=== PATIENT | male | born 1970 | race Caucasian/White ===

== ENCOUNTER 2016-04-04 05:41 | Outpatient (CLI) | payer BC ==
[~2016-04-04] VITALS: Ht 185.4 cm; Wt 108.9 kg
[~2016-04-04 05:41] MED LIST: FEXO30TA17 PO; HYDR-91 PO; HYOS0.1216 PO; MNTL10T PO; NITR-33 PO; PHEN200T27 PO
== END 2016-04-04 13:46 ==
LOC: PREOP 05:41
PROVIDERS: ATTEND Surgery
DX: Z01.818 Encounter for other preprocedural examination (principal); K21.9 Gastro-esophageal reflux disease without esophagitis; Z80.0 Family history of malignant neoplasm of digestive organs

== ENCOUNTER 2016-04-06 08:12 | Day surgery (SDC) | payer BC ==
[~2016-04-06] VITALS: Ht 185.4 cm; Wt 108.9 kg
--- OUTSIDE RECORDS SUMMARY | 2016-04-06 08:18 | XMS REPORT | Continuity of Care Document ---
Author Author [facility] Organization [facility] Address Unknown Phone Unavailable Care Team Providers Care Certified Performance Technologist Name Role Phone SADE HART MD PCP Insurance Providers Payer Name Policy Number Subscriber Name Relationship [id number] Collins Morales Jr 19 Self / Same As Patient Advance Directives Directive Response Recorded Date/Time Advance Directives No 04/04/16 1:42pm Health Care Power of Extra Gang Supervisor No 04/04/16 1:42pm Organ Donor No 04/04/16 1:42pm Resuscitation Status Full Code 04/04/16 1:42pm Problems No problem information available. Medications No known medications. Social History Social History Problem Response Recorded Date/Time Alcohol Use Rarely Uses 04/04/2016 1:42pm Recreational Drug Use No 04/04/2016 1:42pm Recent Foreign Travel No 04/04/2016 1:44pm Recent Infectious Disease Exposure No 04/04/2016 1:44pm Smoking Status Never a Smoker 04/04/2016 1:42pm Recent Hopitalizations No 04/04/2016 1:42pm Query Response Start Date Stop Date Smoking Status Never a Smoker Hospital Discharge Instructions No hospital discharge instructions. Plan of Care Discharge Date 04/04/16 1:46pm Prescriptions See Medication Section Functional Status No functional status results. Allergies, Adverse Reactions, Alerts Allergen Type Severity Reaction Status Last Updated Levofloxacin Adverse Reaction Intermediate RED, ITCHY ARM DURING LEVAQUIN ADMINISTRATION Active 02/16/11 Immunizations No immunization records. Vital Signs Acute Vital Signs Vital Response Date/Time Height (Feet) 6 feet 04/04/2016 1:42pm Height (Inches) 1.00 inches 04/04/2016 1:42pm Height (Calculated Centimeters) 185.984981 cm 04/04/2016 1:42pm Weight (Pounds) 240 pounds 04/04/2016 1:42pm Weight (Ounces) 0.0 oz 04/04/2016 1:42pm Weight (Calculated Grams) 591167.17 gm 04/04/2016 1:42pm Weight (Calculated Kilograms) 108.488898 kilograms 04/04/2016 1:42pm Calculated BMI 31.7 04/04/2016 1:42pm Results No known relevant diagnostic tests, laboratory data and/or discharge summary. Procedures No known history of procedures. Encounters Encounter Location Arrival/Admit Date Discharge/Depart Date Attending Provider Departed Clinic [facility] 04/04/16 5:41am 04/04/16 1: 46pm DARRELL WHITE MD
--- OUTSIDE RECORDS SUMMARY | 2016-04-06 08:18 | XMS REPORT | Continuity of Care Document ---
Author Author [facility] Organization [facility] Address Unknown Phone Unavailable Care Team Providers Care Patient Service Specialist Name Role Phone SADE HART MD PCP Insurance Providers Payer Name Policy Number Subscriber Name Relationship [id number] Collins Morales Jr 19 Self / Same As Patient Advance Directives Directive Response Recorded Date/Time Advance Directives No 04/04/16 1:42pm Health Care Power of Bowling Ball Molder No 04/04/16 1:42pm Organ Donor No 04/04/16 [...] 1.00 inches 04/04/2016 1:42pm Height (Calculated Centimeters) 185.865976 cm 04/04/2016 1:42pm Weight (Pounds) 240 pounds 04/04/2016 1:42pm Weight (Ounces) 0.0 oz 04/04/2016 1:42pm Weight (Calculated Grams) 491140.17 gm 04/04/2016 1:42pm Weight (Calculated Kilograms) 108.605261 kilograms 04/04/2016 1:42pm Calculated BMI 31.7 04/04/2016 1:42pm Results No known relevant diagnostic tests, laboratory data and/or discharge summary. Procedures No known history of procedures. Encounters Encounter Location Arrival/Admit Date Discharge/Depart Date Attending Provider Departed Clinic [facility] 04/04/16 5:41am 04/04/16 1: 46pm DARRELL WHITE MD
[2016-04-06] MEDS ORDERED: HURRICAINE EXT TUBE (BENZOCAINE) XX PRN (08:30)
[2016-04-06] MEDS ORDERED: NALOXONE 0.4 MG/ML 1 ML (NARCAN) VIAL IVP PRN (08:30)
[2016-04-06] MEDS ORDERED: NS IV 500 ML 500 ML IV PRN (08:30)
[2016-04-06] MEDS ORDERED: FLUMAZENIL (ROMAZICON) 0.1 MG/ML 5 ML VIAL INJ PRN (08:30)
[2016-04-06 08:41] VITALS: BP 161/88
[2016-04-06] MEDS ORDERED: MIDAZOLAM 2 MG/2 ML (VERSED) VIAL ONE ×4 (10:01→10:02)
[2016-04-06] MEDS ORDERED: fentaNYL INJECTION 100 MCG/2 ML AMP ONE ×2 (10:02)
[2016-04-06] MEDS ORDERED: HURRICAINE EXT TUBE (BENZOCAINE) ONE (10:02)
[2016-04-06] MEDS: fentaNYL INJECTION 100 MCG/2 ML AMP IVP PRN ×4 (10:08→10:27)
[2016-04-06] MEDS: MIDAZOLAM 2 MG/2 ML (VERSED) VIAL IVP PRN ×3 (10:09→10:22)
--- NOTE | 2016-04-06 10:39 | Pre-Op Note & Conscious Sedat ---
Pre-Operative Progress Note H&P Reviewed The H&P was reviewed, patient examined and no changes noted. Date H&P Reviewed: Apr 06, 2016 Time H&P Reviewed: 09:51 Pre-Op Diagnosis: GERD. Family history of colon cancer. Screening Conscious Sedation Pre-Proced ASA Class: 2 Airway Mallampati Classification: (pauma appropriate class) I. II. III, IV Lungs Heart ASA score ASA 1: a normal healthy patient ASA 2: a patient with a mild systemic disease (mid diabetes, controlled hypertension, obesity ASA 3: a patient with a severe systemic disease that limits activity (angina , COPD, prior Myocardial infarction) ASA 4: a patient with an incapacitating disease that is a constant threat to life (CHF, renal failure) ASA 5: a moribund patient not expected to survive 24 hrs. (ruptured aneurysm) ASA 6: a declared brain patient whose organs are being harvested. For emergent operations, add the letter E after the classification Grade 2 Sedation Plan: Discussed options with patient/fam Note The patient is an appropriate candidate to undergo the planned procedure, sedation, and anesthesia. The patient immediately re-assessed prior to indication. DARRELL WHITE MD Apr 06, 2016 10:39 am
[2016-04-06] MEDS ORDERED: PANT40TA2 PO (10:40)
--- NOTE | 2016-04-06 10:40 | Progress Note-Post Operative ---
Post-Operative Progess Note Pre-Operative Diagnosis GERD. Family history of colon cancer. Screening Post-Operative Diagnosis EGD: Grade 3 esophagitis with ulceration at the distal end. Antral erosion. Colonoscopy: 4 mm proximal sigmoid colon polyp Post-Op Procedure Note Date of Procedure: Apr 06, 2016 Name of Procedure: EGD with antral biopsy Colonoscopy to cecum Snare polypectomy Anesthesia Type sedation Specimen(s) collected antral mucosa and sigmoid polyp DARRELL WHITE MD Apr 06, 2016 10:40 am
--- NOTE | 2016-04-06 10:41 | Discharge Inst-Simple/Standard ---
Discharge Inst-Standard Discharge Medications New, Converted or Re-Newed RX: RX on Chart Patient Instructions/Follow Up Plan of Care/Instructions/FU: repeat colonoscopy in 2 years Activity as Tolerated: Yes Discharge Diet: No Restrictions DARRELL WHITE MD Apr 06, 2016 10:41 am
[2016-04-06 10:55] VITALS: BP 164/104
[2016-04-06 11:20] VITALS: BP 134/87
[2016-04-06 15:09] VITALS: BP 134/87
--- NOTE | 2016-04-07 12:07 | PROCEDURE REPORT ---
PROCEDURE PHYSICIAN: DARRELL WHITE DATE OF PROCEDURE: 04/06/2016 PROCEDURE: 1. Upper GI endoscopy with antral biopsy. 2. Colonoscopy/snare polypectomy. SURGEON: Nicko. INDICATION FOR THE PROCEDURE: This gentleman came in for an endoscopic assessment of symptoms of reflux disease and for screening colonoscopy. He reported a positive family history of colon cancer in his father and paternal grandfather. Informed consent was obtained after reviewing the procedures in detail. DESCRIPTION OF PROCEDURE: 1. UPPER GI ENDOSCOPY/ANTRAL BIOPSY: He was placed in left lateral decubitus position and his vital signs were monitored. Conscious sedation was achieved using Versed and fentanyl. The flexible gastroscope was introduced down the esophagus, past the stomach, into the proximal duodenum. FINDINGS: ESOPHAGUS: Grade 3 esophagitis with ulceration in a linear fashion, involving the distal end of the esophagus. Photodocumentation was obtained. STOMACH: One small erosion at the antrum. Biopsy for H. pylori was obtained. DUODENUM: Normal. He tolerated the procedure well and was taken to the nursing area in a stable condition. IMPRESSION: 1. Symptoms of reflux disease. 2. Grade 3 esophagitis and antral erosion. 3. Helicobacter status pending PROCEDURE: 2. COLONOSCOPY/POLYPECTOMY: Digital rectal examination was unremarkable. The colonoscope was then introduced into the rectum and advanced all the way up to the cecum. The quality of bowel preparation was excellent the scope was then withdrawn slowly and the mucosa examined in a systematic fashion. FINDINGS: A 4 mm polyp at the proximal sigmoid colon that was snared and retrieved. He tolerated the procedure well and was taken back to the nursing area in a stable condition. IMPRESSION: 1. Screening colonoscopy. 2. Positive family history. 3. Sigmoid polyp excised. 4. Recommend repeating in 2 years. Job ID: [id number] Dictated Date: 04/06/2016 10:38:39 Yeast Stacker Date: 04/07/2016 12:01:28 / sergio LORA
== END 2016-04-06 11:50 | disposition home or self-care (01) ==
LOC: ENDO 08:12
PROVIDERS: ATTEND Surgery
DX: Z12.11 Encounter for screening for malignant neoplasm of colon (principal); D12.5 Benign neoplasm of sigmoid colon; K21.9 Gastro-esophageal reflux disease without esophagitis; K22.10 Ulcer of esophagus without bleeding; K25.9 Gastric ulcer, unspecified as acute or chronic, without hemorrhage or perforation; K29.50 Unspecified chronic gastritis without bleeding; Z80.0 Family history of malignant neoplasm of digestive organs
CPT/HCPCS: 88305; 88342

== ENCOUNTER → 2019-11-26 | Outpatient (CLI) | payer BC ==
[~2019-11-26] MED LIST changes: +PANT40TA2 PO
== END | disposition home or self-care (01) ==
LOC: PREOP 11:48
PROVIDERS: ATTEND Surgery
DX: Z01.818 Encounter for other preprocedural examination (principal)

== ENCOUNTER 2020-01-23 11:00 | Outpatient (RCR) | payer BC ==
[~2020-01-23] VITALS: Ht 188 cm; Wt 127.3 kg
[2020-01-23] MEDS ORDERED: MONT10TA97 PO (11:19)
[2020-01-23] MEDS ORDERED: PANT40TA52 PO (11:19)
[2020-01-23] MEDS ORDERED: LORA10TA76 PO (11:19)
== END 2020-01-23 12:20 | disposition home or self-care (01) ==
LOC: PREOP 11:00
PROVIDERS: ATTEND Surgery
DX: Z01.818 Encounter for other preprocedural examination (principal); K40.90 Unilateral inguinal hernia, without obstruction or gangrene, not specified as recurrent

== ENCOUNTER 2020-01-29 08:23 | Day surgery (SDC) | payer BC, OTHER ==
--- NOTE | 2020-01-26 10:01 | HISTORY AND PHYSICAL ---
DATE OF SERVICE: DATE OF ADMISSION: 01/29/2020. PROCEDURE DATE: 01/29/2020. PRIMARY CARE PHYSICIAN: Dr. Kimberli Cho. HISTORY OF PRESENT ILLNESS: The patient is a 49-year-old male, who was seen for left testicular swelling for years and had noticed a slight increase in swelling. He reports that this had been on an intermittent basis. He reports that this was also worse upon physical exertion. Upon examination, he was found to have a left inguinal hernia, which was reducible. He also reports he was unsure if he had a screening colonoscopy. He reports that his last colonoscopy was three years ago and a polyp was identified; however, was unsure if this was a benign polyp. It was explained to the patient that if this was a tubular adenoma or hyperplastic polyp that he can wait for five years; however, if there was a villous component, then he will need a colonoscopy in one to three years. He was, otherwise, doing well. He did not report any complaints. He did report a family history of colon cancer; however, with his father as well as maternal grandfather having the disease. He reports that he is tolerating regular diet and activities and having normal bowel movements. PAST MEDICAL HISTORY: Nephrolithiasis. PAST SURGICAL HISTORY: Rhinoplasty. ALLERGIES: No known drug allergies. MEDICATIONS: None. SOCIAL HISTORY: Negative for tobacco smoke. Negative for alcohol. FAMILY HISTORY: Father and paternal grandfather, colon cancer. REVIEW OF SYSTEMS: This is a well-nourished male in no acute distress. He is not experiencing any shortness of breath or difficulty breathing. No chest pain, palpitations or diaphoresis. No nausea, vomiting or abdominal pain. No diarrhea or constipation. No red blood per rectum. No dark tarry stools. No fever or chills. No recent inadvertent weight loss. He does report increased swelling in the left inguinal region. All other review of systems is negative. PHYSICAL EXAMINATION: VITAL SIGNS: Blood pressure is 124/84. Current weight 273.2, height 6 feet 1 inches. CHEST: Clear. Good breath sounds bilaterally. HEART: Regular and no murmurs. EXTREMITIES: No lower extremity edema. Negative Homans sign. HEENT: No scleral icterus. NECK: No cervical lymphadenopathy. ABDOMEN: Soft and nondistended. There is a left indirect inguinal hernia, which is reducible; however, is mildly tender to palpation. There is no right inguinal hernia component identified. SKIN: Warm, dry and pink. NEUROLOGIC: He is awake, alert and oriented x3. ASSESSMENT AND PLAN: A 49-year-old male with a symptomatic left reducible inguinal hernia, who also has a first-degree family history of colon cancer as well as a history of polyps. At this time, he would like to proceed with a laparoscopic left inguinal hernia repair as well as a screening colonoscopy. The natural history of hernias was explained to the patient and at this time, we will recommend he apply support at all times, especially when doing lifting and exertion. The patient verbalized understanding of instructions and agrees to proceed as planned. Job ID: [id number] DocumentID: [id number] Dictated Date: 01/26/2020 09:20:56 Flying Ii Instructor Date: 01/26/2020 10:00:48 Dictated By: KATHY THOMAS APRN
[2020-01-29] VITALS (10 sets, daily range): BP systolic 123–144; BP diastolic 82–98
[~2020-01-29] VITALS: Ht 188 cm; Wt 127.3 kg
[~2020-01-29 08:23] MED LIST changes: +LORA10TA76 PO; +MONT10TA97 PO; +PANT40TA52 PO
--- NOTE | 2020-01-29 08:50 | Progress Note-Pre Operative ---
Pre-Operative Progress Note H&P Reviewed The H&P was reviewed, patient examined and no changes noted. Date Seen by Provider: Jan 29, 2020 Time Seen by Provider: 08:45 Date H&P Reviewed: Jan 29, 2020 Time H&P Reviewed: 08:40 Pre-Operative Diagnosis: Left inguinal hernia, Screening colonoscopy, Fam hx colon CA, Hx of polyps KATHY THOMAS APRN Jan 29, 2020 08:50
[2020-01-29] MEDS ORDERED: ceFAZolin 2 GM IV Premixed 50 ML ONE (08:51)
[2020-01-29] MEDS ORDERED: HYDR-4227 PO (08:53)
--- NOTE | 2020-01-29 08:53 | Discharge Inst-Surgical ---
D/C Lap Instructions-KIDO Reconcile Patient Problems Problems Reviewed?: Yes New, Converted, or Re-Newed RX: RX on Chart Follow Up Appt in 2 weeks Activity as tolerated No driving for 24 hours No driving while on pain medications Incentive Spirometry use every 2 hours while awake Regular Diet Symptoms to Report: Fever over 101 degree F, Nausea/Vomiting Infection Signs and Symptoms to report: Increased redness, Foul odor of wound, Increased drainage Bathing instructions: May shower Operative Area Clean/Dry; Keep incision clean/dry If any problems/questions: Contact your physician or go to Emergency Room KATHY THOMAS APRN Jan 29, 2020 08:53
[2020-01-29] MEDS: LACTATED RINGERS 1,000 ML IV PRN ×2 (08:55→11:09)
[2020-01-29 08:56] LABS: BASOPHILS % (AUTO) 1 % (0-10); EOSINOPHILS # (AUTO) 0.2 10^3/uL (0.0-0.3); EOSINOPHILS % (AUTO) 3 % (0-10); HEMATOCRIT 48 % (40-54); HEMOGLOBIN 15.5 g/dL (13.3-17.7); LYMPHOCYTES # (AUTO) 2.2 10^3/uL (1.0-4.0); LYMPHOCYTES % (AUTO) 32 % (12-44); MEAN CORPUSCULAR HEMOGLOBIN 27 pg (25-34); MEAN CORPUSCULAR HGB CONC 32 g/dL (32-36); MEAN CORPUSCULAR VOLUME 84 fL (80-99); MEAN PLATELET VOLUME 8.9 fL (9.0-12.2); MONOCYTES # (AUTO) 0.5 10^3/uL (0.0-1.0); MONOCYTES % (AUTO) 8 % (0-12); NEUTROPHILS # (AUTO) 3.9 10^3/uL (1.8-7.8); NEUTROPHILS % (AUTO) 56 % (42-75); PLATELET COUNT 297 10^3/uL (130-400); WHITE BLOOD COUNT 6.9 10^3/uL (4.3-11.0)
[2020-01-29] MEDS ORDERED: FAMOTIDINE 20MG/2ML IV (PEPCID) ONE (08:58)
[2020-01-29] MEDS ORDERED: ACETAMINOPHEN 325 MG TABLET PO PRN (09:00)
[2020-01-29] MEDS ORDERED: morphine INJ 10 MG/ML 1ML (SYR OR VIAL) IVP PRN (09:00)
[2020-01-29] MEDS ORDERED: ONDANSETRON 4 MG/2 ML (SDV) Z0FRAN IVP PRN ×2 (09:00→12:00)
[2020-01-29] MEDS ORDERED: HYDROcodone/APAP 5 MG/325 MG (LORTAB) TAB PO ONE (09:00)
[2020-01-29] MEDS ORDERED: ceFAZolin 2 GM IV Premixed 50 ML IV ONE (09:15)
[2020-01-29] MEDS ORDERED: FAMOTIDINE 20MG/2ML IV (PEPCID) IV ONE (09:15)
[2020-01-29] MEDS ORDERED: LIDOCAINE/EPI 1%-1:200,000 (XYLOCAINE) 30 ML VIAL ONE (09:26)
[2020-01-29] MEDS ORDERED: ROCURONIUM 10 MG/ML 5 ML SYRINGE IV ONE (09:43)
[2020-01-29] MEDS ORDERED: SUCCINYLCHOLINE INJ 100 MG/5 ML SYR/VIAL ONE (09:43)
[2020-01-29] MEDS ORDERED: proPOfol 200 MG/20 ML (DIPRIVAN) VIAL IV ONE (09:43)
[2020-01-29] MEDS ORDERED: LIDOCAINE PF 2% 5 ML (XYLOCAINE) VIAL ONE (09:43)
[2020-01-29] MEDS ORDERED: ONDANSETRON 4 MG/2 ML (SDV) Z0FRAN ONE (09:43)
[2020-01-29] MEDS ORDERED: MIDAZOLAM 2 MG/2 ML (VERSED) VIAL ONE (09:44)
[2020-01-29] MEDS ORDERED: fentaNYL INJECTION 100 MCG/2 ML AMP ONE ×2 (09:44→11:17)
[2020-01-29] MEDS ORDERED: SEVOFLURANE (ULTANE) 15 ML INHAL SOLN ONE ×5 (09:46→11:53)
[2020-01-29] MEDS ORDERED: NEOSTIGMINE 3 MG/3 ML VIAL ONE (09:48)
[2020-01-29] MEDS ORDERED: GLYCOPYRROLATE 0.2 MG/ML (ROBINUL) 2 ML VIAL ONE (09:48)
[2020-01-29] MEDS ORDERED: KETOROLAC 30 MG/ML VIAL ONE (10:21)
--- NOTE | 2020-01-29 11:45 | Progress Note-Post Operative ---
Post-Operative Progess Note Surgeon (s)/Automatic Fabric Cutter (s) Surgeon Dr. Arthur Arroyo M.D. Automatic Fabric Cutter: Abhay Thomas PIGS FEET CLEANER Pre-Operative Diagnosis Left inguinal hernia, Screening colonoscopy, Fam hx colon CA, Hx of polyps Post-Operative Diagnosis Bilateral indirect inguinal hernias, reflux esophagitis stage II, small hiatal hernia, mild to moderate gastritis, chronic stage II external and internal hemorrhoids, mild sigmoid diverticulosis Procedure & Operative Findings Date of Procedure 01/29/20 Procedure Performed/Findings Laparoscopic bilateral inguinal hernia repair with mesh, EGD with biopsy, colonoscopy Anesthesia Type GET Estimated Blood Loss Estimated blood loss (mL): Minimal Specimens/Packing Specimens Removed 1) Antrum 2)GE Junction ABHAY THOMAS PIGS FEET CLEANER Jan 29, 2020 11:45
[2020-01-29] MEDS ORDERED: MEPERIDINE (DEMEROL) INJ 50 MG/ML ONE (11:58)
[2020-01-29] MEDS ORDERED: HYDROmorphone 2 MG/ML VIAL (DILAUDID) IV ONE (12:00)
[2020-01-29] MEDS ORDERED: PROMETHAZINE INJ 25 MG/ML (PHENERGAN) AMP IVP ONE (12:00)
[2020-01-29] MEDS ORDERED: MEPERIDINE (DEMEROL) INJ 50 MG/ML IVP ONE (12:00)
[2020-01-29] MEDS ORDERED: morphine INJ 10 MG/ML 1ML (SYR OR VIAL) IVP ONE (12:00)
--- NOTE | 2020-01-29 15:02 | Anesthesia-General Post-Op ---
General Patient Condition Mental Status/LOC: Same as Preop Cardiovascular: Satisfactory Nausea/Vomiting: Absent Respiratory: Satisfactory Pain: Controlled Complications: Absent Post Op Complications Complications None Follow Up Care/Instructions Patient Instructions None needed. Anesthesia/Patient Condition Patient Condition Patient is doing well, no complaints, stable vital signs, no apparent adverse anesthesia problems. No complications reported per nursing. LAKESHIA PARKER CRNA Jan 29, 2020 15:02
--- NOTE | 2020-01-29 19:21 | OPERATIVE REPORT ---
DATE OF SERVICE: 01/29/2020 ATTENDING PRIMARY CARE PHYSICIAN: Dr. Kimberli Cho. PREOPERATIVE DIAGNOSES: Symptomatic reducible left inguinal hernia, gastroesophageal reflux disease, screening colonoscopy with family history of colon cancer. POSTOPERATIVE DIAGNOSES: Bilateral indirect inguinal hernias, reflux esophagitis stage II, small hiatal hernia approximately 1.5 cm in size, mild to moderate gastritis, chronic stage II external and internal hemorrhoids, mild sigmoid diverticulosis. PROCEDURE: Bilateral laparoscopic inguinal hernia repair with mesh, EGD with biopsy, colonoscopy. SURGEON: Wayne Arroyo MD. PROMOTION PRODUCER: Abhay Montero APRN. ANESTHESIA: General endotracheal. ESTIMATED BLOOD LOSS: Minimal. FINDINGS: Same as postoperative diagnoses. DISPOSITION: The patient tolerated the procedure well. INDICATIONS: The patient is a 49-year-old male who was seen for pain and a palpable bulge in the left inguinal region that would at times be palpable near his testicle. He states that this was first detected years ago; however, had become more painful and more apparent as well. He was found to have a reducible left inguinal hernia. He also does have a longstanding history of gastroesophageal reflux disease and states that he has epigastric burning sensation, which has worsened over time as well. He is also in need of a screening colonoscopy. He does have a first-degree relative with history of colon cancer with his father having the disease. DESCRIPTION OF PROCEDURE: The patient was brought to the operating room and laid supine on the table. After adequate IV pain and sedative medications and general endotracheal intubation, the abdomen was prepped and draped in standard surgical fashion. A 0.5% Marcaine with epinephrine was used to anesthetize overlying skin in the infraumbilical rim and a transverse skin incision was made using a 15 blade. A sharp towel clamp was used to retract the abdominal wall anteriorly and a Veress needle inserted with a low opening pressure of 0 mmHg and the abdomen was insufflated to 15 mmHg pressure. The Veress needle removed and a 10 mm XL trocar placed followed by a 10 mm 45-degree angle laparoscope visualizing the peritoneal cavity. A 4-quadrant abdominal exploration was performed. There were bilateral indirect inguinal hernias identified with nothing within the hernia sac. What was visualized the omentum, small bowel and colon appeared normal. Under direct visualization, we then proceeded to place bilateral 5 mm ports. The patient was then placed in Trendelenburg position. We first proceeded with repair of the left inguinal hernia by opening up the peritoneal lining starting laterally towards the conjoined tendon and inguinal ligament laterally and medially until the Carlo's ligament identified. We then proceeded with our inferior dissection encompassing the hernia sac. The cord and its surrounding contents identified and spared throughout the process. A medium size 3DMax polypropylene mesh was then placed through the 10 mm port site and tacked to Carlo's ligament medially with an absorbable tacker and to the inguinal ligament laterally. The peritoneal lining was then placed over the mesh and a few tacks placed to hold this in place with visualization of good hemostasis. In a similar manner, we proceeded with repair of the right inguinal hernia. The peritoneal lining was opened using the Sonicision and we proceeded laterally towards the conjoined tendon and inguinal ligament laterally, next to Carlo's ligament medially. We then proceeded with inferior dissection again identifying and sparing the cord and its surrounding contents. The same type of mesh was then placed and tacked to Carlo's ligament medially and the inguinal ligament laterally. The peritoneal lining was then placed over the mesh and a few tacks placed to hold this in place with visualization of good hemostasis. The 10 mm port site fascia and peritoneum were then closed under direct visualization using a Peter-Kristen device and 0 Vicryl suture. The abdomen was desufflated and remaining ports were removed. All skin incisions were closed using 4-0 Monocryl running subcuticular sutures. Wounds were then cleaned and covered with Dermabond. We then proceeded with the EGD portion of the procedure and the mouthpiece was applied and the endoscope was placed in the mouth, visualizing the pharynx and hypopharyngeal region. Vocal cords, epiglottis and vallecula identified and appeared to be normal. The endoscope was then gently intubated. The esophageal opening and esophagus insufflated. The endoscope was then advanced to the first, second and third portions of esophagus at the level of the GE junction, a reflux esophagitis stage II identified. There were no ulcers or strictures identified in this region. A biopsy was taken with forceps with visualization of good hemostasis. The endoscope was then advanced into the stomach and endoscope retroflexed, visualizing a small hiatal hernia approximately 1.5 cm in size. There was a mild to moderate gastritis. No formal ulcerations, polyps, or any neoplasms. A biopsy was taken of the antrum to rule out H. pylori with visualization of good hemostasis. The endoscope was then advanced through the pylorus and the first and second portion of the duodenum, which appeared normal with no distal obstructions. The endoscope was then slowly withdrawn while taking a second look and suctioning of residual air with no additional findings. We then proceeded with the colonoscopy portion of the procedure and digital rectal examination was performed, which revealed chronic stage II external and internal hemorrhoids, not actively edematous nor inflamed and no bleeding. Normal sphincter tone was felt and there were no palpable masses. Prostate gland was palpable and appeared normal. The endoscope was then intubated and anus and rectum gently insufflated. The endoscope was then advanced to the valves of Frias of the rectum with no polyps or any neoplasms identified. Through the sigmoid colon, mild sigmoid diverticulosis identified. The endoscope was then advanced to the remainder of the descending, transverse and ascending colon to the cecum. These segments were normal. There were no polyps or any neoplasms identified throughout the colon or rectum. The endoscope was slowly withdrawn while taking a second look and suctioning of residual air with no additional findings. The patient tolerated the procedure well. We will start IV normal pain medication as well as a clear liquid diet. Once he is tolerating clears, has good pain control with oral pain medications, ambulating well, we will discharge him home where he will be instructed to do no heavy lifting or exertion for the next two weeks. We will also recommend the necessary lifestyle and diet accommodation including small and more frequent meals, avoidance of eating at night as well as head elevation while lying supine. He also needs to avoid caffeinated beverages, spicy, greasy and acidic foods. We will also recommend that he take his PPI acid appliance service technician on a daily basis versus p.r.n. We will also recommend a high fiber diet with at least 30 grams of fiber daily to promote soft stools on a daily basis. Due to his first degree family history of colon cancer, we will recommend a followup colonoscopy in approximately 5 years. Job ID: [id number] DocumentID: [id number] Dictated Date: 01/29/2020 12:06:33 Quill Buncher And Sorter Date: 01/29/2020 19:21:07 Dictated By: MD GENO EARL
== END 2020-01-29 13:55 | disposition home or self-care (01) ==
LOC: SDC 08:23
PROVIDERS: ATTEND Surgery
DX: Z12.11 Encounter for screening for malignant neoplasm of colon (principal); K40.20 Bilateral inguinal hernia, without obstruction or gangrene, not specified as recurrent; K29.50 Unspecified chronic gastritis without bleeding; K21.00 Gastro-esophageal reflux disease with esophagitis, without bleeding; K44.9 Diaphragmatic hernia without obstruction or gangrene; K64.1 Second degree hemorrhoids; K57.30 Diverticulosis of large intestine without perforation or abscess without bleeding; E66.9 Obesity, unspecified; Z68.36 Body mass index [BMI] 36.0-36.9, adult; Z79.899 Other long term (current) drug therapy; Z88.8 Allergy status to other drugs, medicaments and biological substances; Z80.0 Family history of malignant neoplasm of digestive organs
CPT/HCPCS: 43239; 45378; 49650; 85025; 87081; 88305; C1781 ×2; 36415

== ENCOUNTER → 2020-03-11 | Outpatient (CLI) | payer OTHER ==
[~2020-03-11] MED LIST changes: +HYDR-4227 PO
--- NOTE | 2020-03-11 10:29 | Diagnostic Imaging Report ---
PROCEDURE: US Scrotum. TECHNIQUE: Multiple real-time grayscale images were obtained over the scrotum in various projections bilaterally. INDICATION: Scrotal swelling. History of previous hernia surgery 01/29/2020. FINDINGS: Large bilateral hydroceles, larger on the left. The right testicle measures 4.5 x 3 x 3.4 cm. The left testicle measures 5.1 x 3.6 x 3.7 cm. There are no testicular masses. There is normal blood flow to both testes. No evidence of varicoceles. The epididymides appear normal bilaterally. IMPRESSION: 1. Large bilateral hydroceles. No evidence of bowel herniation along the inguinal canals. Dictated by: Dictated on workstation # [id number]
== END ==
LOC: RAD 09:16
PROVIDERS: ATTEND Surgery
DX: N43.3 Hydrocele, unspecified (principal); Z98.890 Other specified postprocedural states
CPT/HCPCS: 76870

== ENCOUNTER 2020-03-15 05:44 | Outpatient (RCR) | payer OTHER ==
[~2020-03-15] VITALS: Ht 185.5 cm; Wt 118.2 kg
== END 2020-03-15 11:26 | disposition home or self-care (01) ==
LOC: PREOP 05:44
PROVIDERS: ATTEND Urology
DX: Z01.812 Encounter for preprocedural laboratory examination (principal); N43.3 Hydrocele, unspecified

== ENCOUNTER 2020-03-18 07:33 | Day surgery (SDC) | payer OTHER ==
[2020-03-18] VITALS (10 sets, daily range): BP systolic 127–147; BP diastolic 83–97
[~2020-03-18] VITALS: Ht 185.5 cm; Wt 118.2 kg
--- NOTE | 2020-03-18 07:07 | Progress Note-Pre Operative ---
Pre-Operative Progress Note H&P Reviewed The H&P was reviewed, patient examined and no changes noted. Date Seen by Provider: Mar 18, 2020 Time Seen by Provider: 08:18 Date H&P Reviewed: Mar 18, 2020 Time H&P Reviewed: 08:18 Pre-Operative Diagnosis: BILATERAL HYDROCELES UZAIR LAWSON MD Mar 18, 2020 07:07
[2020-03-18] MEDS ORDERED: ceFAZolin INJECTION 1,000 MG in WATER (STERILE) FOR INJECTION 10 ML IV ONE (07:45)
[2020-03-18] MEDS: LACTATED RINGERS 1,000 ML IV PRN ×2 (07:58→08:55)
[2020-03-18] MEDS ORDERED: proPOfol 200 MG/20 ML (DIPRIVAN) VIAL IV ONE (08:03)
[2020-03-18] MEDS ORDERED: fentaNYL INJECTION 100 MCG/2 ML AMP ONE (08:03)
[2020-03-18] MEDS ORDERED: ROCURONIUM 10 MG/ML 5 ML SYRINGE IV ONE (08:03)
[2020-03-18] MEDS ORDERED: LIDOCAINE PF 2% 5 ML (XYLOCAINE) VIAL ONE (08:03)
[2020-03-18] MEDS ORDERED: SEVOFLURANE (ULTANE) 15 ML INHAL SOLN ONE (08:03)
[2020-03-18] MEDS ORDERED: ONDANSETRON 4 MG/2 ML (SDV) Z0FRAN ONE (08:03)
[2020-03-18] MEDS ORDERED: MIDAZOLAM 2 MG/2 ML (VERSED) VIAL ONE (08:04)
[2020-03-18] MEDS ORDERED: HYDROmorphone 2 MG/ML VIAL (DILAUDID) ONE ×2 (08:55→09:30)
--- NOTE | 2020-03-18 09:29 | Progress Note-Post Operative ---
Post-Operative Progess Note Surgeon (s)/Mitering Machine Operator (s) Surgeon UZAIR LAWSON MD Mitering Machine Operator: none Pre-Operative Diagnosis BILATERAL HYDROCELES Post-Operative Diagnosis same Procedure & Operative Findings Date of Procedure 03/18/20 Procedure Performed/Findings bilateral hydrocelectomy Anesthesia Type general Estimated Blood Loss Estimated blood loss (mL): negligible Specimens/Packing Specimens Removed none Packing: yaz drains UZAIR LAWSON MD Mar 18, 2020 09:29
--- NOTE | 2020-03-18 09:42 | Discharge Inst-Urology ---
Discharge Inst-Urology Reconcile Patient Problems Problems Reviewed?: Yes Final Diagnosis BILATERAL HYDROCELES Patient Instructions/Follow Up Plan/Assessment/Instructions Please make appointment to been seen in office in 2 weeks. Rest and scrotal support till then Come to office tomorrow 9am to DC drain, may shower after that no bath Ice in RR and at home for 6 hours and then PRN Keep bowels soft snf moving Increase oral fluids for 48 hours and then as needed. Diet and Activity as tolerated. If questions or concerns contact your physician Or seek help at emergency department. UZAIR LAWSON MD Mar 18, 2020 09:42
[2020-03-18] MEDS ORDERED: ONDANSETRON 4 MG/2 ML (SDV) Z0FRAN IVP PRN (09:45)
[2020-03-18] MEDS ORDERED: morphine INJ 10 MG/ML 1ML (SYR OR VIAL) IVP ONE (09:45)
[2020-03-18] MEDS ORDERED: HYDROmorphone 2 MG/ML VIAL (DILAUDID) IV ONE (09:45)
[2020-03-18] MEDS ORDERED: TRM50T PO (10:18)
[2020-03-18] MEDS ORDERED: CEPH-38 PO (10:18)
--- NOTE | 2020-03-18 10:43 | NUR ---
PRESCRIPTIONS CALLED INTO [facility] AT THIS TIME.
--- NOTE | 2020-03-18 11:15 | Anesthesia-General Post-Op ---
General Patient Condition Mental Status/LOC: Same as Preop Cardiovascular: Satisfactory Nausea/Vomiting: Absent Respiratory: Satisfactory Pain: Controlled Complications: Absent Post Op Complications Complications None Follow Up Care/Instructions Patient Instructions None needed. Anesthesia/Patient Condition Patient Condition Patient is doing well, no complaints, stable vital signs, no apparent adverse anesthesia problems. AUGIE RODRIGUEZ DO Mar 18, 2020 11:15
--- NOTE | 2020-03-18 13:56 | OPERATIVE REPORT ---
DATE OF SERVICE: 03/18/2020 PREOPERATIVE DIAGNOSIS: Bilateral hydrocele. POSTOPERATIVE DIAGNOSIS: Bilateral hydrocele. OPERATION PERFORMED: Bilateral hydrocelectomy. SURGEON: Uzair Lawson MD ANESTHESIA: General. COMPLICATIONS: None. DESCRIPTION OF PROCEDURE: Under satisfactory general anesthesia, the patient in supine position, genitalia, abdomen and thighs were prepped and draped in the usual sterile fashion. Incision was made in the median raphe then carried through the left scrotal compartment. Large amount of hydrocele fluid was suctioned. Testicles were delivered into the wound and was normal. Epididymis normal. The hydrocele sac was really not very big, so I everted it behind the spermatic cord with several interrupted 4-0 chromic catgut suture. Hemostasis was complete. The testicle was replaced in the left scrotal compartment. In a similar fashion, the right side was dealt with and again hemostasis was complete. Each scrotal compartment was drained with a quarter of an inch Krzysztof drain brought through a separate stab wound at the bottom of the scrotum on each side, secured in position with 4-0 chromic catgut. Closure was performed in layers, first the dartos with a running 3-0 chromic catgut and then the skin was interrupted 4-0 Vicryl. Telfa, fluffs and scrotal support was applied. Needle, sponge, instrument counts correct x2. Estimated blood loss negligible, none of which was replaced. The patient tolerated the procedure and anesthesia well and was sent to recovery room in stable condition. Instructions were given to the . Job ID: [id number] DocumentID: [id number] Dictated Date: 03/18/2020 09:45:08 Resident Advisor Date: 03/18/2020 13:55:02 Dictated By: UZAIR LAWSON MD
== END 2020-03-18 11:20 | disposition home or self-care (01) ==
LOC: SDC 07:33
PROVIDERS: ATTEND Urology
DX: N43.3 Hydrocele, unspecified (principal); K21.9 Gastro-esophageal reflux disease without esophagitis; M19.90 Unspecified osteoarthritis, unspecified site; Z79.899 Other long term (current) drug therapy; Z88.1 Allergy status to other antibiotic agents
CPT/HCPCS: 87081